=== PATIENT | male | born 1950 | race Caucasian/White ===

== ENCOUNTER → 2016-10-16 | Outpatient (CLI) | payer OTHER, MEDICARE | LOC: MW.CHIM 06:56 | PROVIDERS: ATTEND Internal Medicine | DX: I25.10 Atherosclerotic heart disease of native coronary artery without angina pectoris (principal) | CPT/HCPCS: 93005 ==

== ENCOUNTER → 2016-10-22 | Outpatient (CLI) | payer MEDICARE, OTHER ==
--- NOTE | 2016-10-22 15:34 | US ---
EXAMINATION: JENNIFER HISTORY: Atherosclerotic heart disease COMPARISON: None TECHNIQUE: Pressures obtained in the upper and lower extremities bilaterally. FINDINGS/IMPRESSION: Both the left and right ABIs are normal and greater than 1.
== END ==
LOC: MW.US 13:47
PROVIDERS: ATTEND Internal Medicine
DX: I25.10 Atherosclerotic heart disease of native coronary artery without angina pectoris (principal)
CPT/HCPCS: 93922; 93922-26

== ENCOUNTER 2016-11-05 10:11 | Day surgery (SDC) | payer OTHER, MEDICARE ==
[~2016-11-05 10:11] MED LIST: Lactated Ringers 1,000 ML IV SCH; Lidocaine 2% 5 ML SDV ONE; Propofol 200 MG/20 ML SDV ONE; fentaNYL 100 MCG/2 ML SDV ONE
--- NOTE | 2016-11-05 10:40 | PCM.PREANE ---
Preanesthetic Assessment - Anesthesia/Transfusion/Family Hx Anesthesia History: Prior Anesthesia Without Reaction Family History of Anesthesia Reaction: No Transfusion History: No Prior Transfusion(s) - Review of Systems General: No Symptoms Pulmonary: No Symptoms Cardiovascular: No Symptoms Gastrointestinal: No symptoms Neurological: No Symptoms Other: Reports: None - Physical Assessment NPO Status Date: 11/04/16 Height: 1.75 m Weight: 87.09 kg ASA Class: 3 Mental Status: Alert & Oriented x3 Airway Class: Mallampati = 2 Dentition: Reports: Partial ROM/Head Extension: Full Lungs: Clear to auscultation, Normal respiratory effort Cardiovascular: Regular Rate, Regular Rhythm - Allergies Allergies/Adverse Reactions: Allergies Allergy/AdvReac Type Severity Reaction Status Date / Time No Known Allergies Allergy Verified 10/31/16 10:38 - Blood Blood Available: No - Anesthesia Plan Pre-Op Medication Ordered: None - Acknowledgements Anesthesia Type Planned: MAC Pt an Appropriate Candidate for the Planned Anesthesia: Yes Alternatives and Risks of Anesthesia Discussed w Pt/Guardian: Yes Pt/Guardian Understands and Agrees with Anesthesia Plan: Yes Additional Comments: known CAD, has obstructive dz but unable to place stent, medically managed. Last stress test 09/26/16 with partially reversible inf wall defect. Asymptomatic with usual daily activities, but activities are limited. PreAnesthesia Questionnaire Cardiovascular History: Reports: CAD, High Cholesterol, Hypertension, Other ( See Below) Other 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" Gastrointestinal History: Reports: Colon Polyp Musculoskeletal History: Reports: Back Pain, Chronic Endocrine/Metabolic History: Reports: Hypothyroidism - Past Surgical History Head Surgeries/Procedures: Reports: None GI Surgical History: Reports: Colonoscopy Neurological Surgical History: Reports: Lumbar Spine Other Neurological Surgeries/Procedures: hx back surgery - SUBSTANCE USE Smoking Status *Q: Former Smoker Tobacco Use Within Last Twelve Months: No Recreational Drug Use History: No - HOME MEDS Home Medications: Home Meds Atenolol 0.5 tab PO DAILY 10/31/16 [History] Levothyroxine Sodium [Unithroid] 50 mcg PO DAILY 10/31/16 [History] Meloxicam [Mobic] 15 mg PO DAILY 10/31/16 [History] atorvaSTATin Calcium [Atorvastatin Calcium] 0.5 tab PO BEDTIME 10/31/16 [History ] traMADol HCl [Tramadol HCl] 50 mg PO QID PRN 10/31/16 [History] - CURRENT (IN HOUSE) MEDS Current Meds: Current Medications Lactated Ringer's (Ringers, Lactated) 1,000 mls @ 125 mls/hr IV ASDIRECTED JANETH Discontinued Medications Fentanyl (Sublimaze) Confirm Administered Dose 100 mcg .ROUTE .STK-MED ONE Stop: 11/05/16 09:54 Lidocaine (Xylocaine-Mpf 2%) Confirm Administered Dose 5 ml .ROUTE .STK-MED ONE Stop: 11/05/16 09:54 Propofol (Diprivan 20 Ml) Confirm Administered Dose 400 mg .ROUTE .STK-MED ONE Stop: 11/05/16 09:54
[2016-11-05] MEDS ORDERED: Phenylephrine/Normal Saline 100 MCG/ML 10 ML Syringe ONE (10:46)
[2016-11-05] MEDS ORDERED: ePHEDrine 50 MG/ML SDV ONE (10:50)
[2016-11-05] MEDS ORDERED: Propofol 200 MG/20 ML SDV ONE ×2 (10:56→11:13)
--- NOTE | 2016-11-05 11:49 | PCM.POSTAN ---
POST ANESTHESIA ASSESSMENT - MENTAL STATUS Mental Status: alert, oriented - RESPIRATORY Respiratory Status: respiratory rate WNL, airway patent, O2 saturation stable - CARDIOVASCULAR CV Status: pulse rate WNL, blood pressure stable - GASTROINTESTINAL GI Status: no symptoms - POST OP HYDRATION Hydration Status: adequate & stable - OBSERVATIONS Free Text/Narrative:: no anesthesia problems
--- NOTE | 2016-11-05 12:01 | PCM.OPNOTE ---
- General Post-Op/Procedure Note Date of Surgery/Procedure: 11/05/16 Operative Procedure(s): attempted colonoscopy Findings: see dict [id number] Pre Op Diagnosis: scrn colonoscopy Post-Op Diagnosis: diverticulosis Anesthesia Technique: Moderate sedation Primary Surgeon: Tito Ballard Complications: None Condition: Good
[2016-11-05 13:44] VITALS: BP 122/74
--- NOTE | 2016-11-05 16:09 | CR ---
EXAMINATION: Single contrast barium enema HISTORY: Incomplete colonoscopy. COMPARISON: None TECHNIQUE: Standard single contrast barium enema was performed using diluted barium. FINDINGS: The colon and rectum appear normally distensible. Moderate sigmoid diverticulosis is noted . No definite stricture or filling defect. No reflux into the terminal ileum. The appendix is noted. IMPRESSION: Diverticulosis, otherwise unremarkable single contrast barium enema.
--- NOTE | 2016-11-05 17:52 | OR ---
SURGEON: Tito Ballard MD DATE OF PROCEDURE: 11/05/2016 PREOPERATIVE DIAGNOSIS: Screening colonoscopy. POSTOPERATIVE DIAGNOSIS: Diverticulosis. PROCEDURE PERFORMED: attempted colonoscopy. COMPLICATIONS: None. FINDINGS: 1. The patient is easily sedated with GENERAL CLERK and Diprivan. The patient is soundly snoring. 2. The patient's bowel prep was average with a couple of stool ball and some semi-formed liquid stool. 3. The patient's colonoscopy is attempt all the way to 60 cm and stopped because we cannot continue the colonoscopy. 4. Finding from that 60 cm: The patient has very extensive diverticulosis, false lumen is larger than the true lumen. DESCRIPTION OF PROCEDURE: The patient was taken to the endoscopy room and put in left decubitus position. Left side down and right side up, and the patient was then given Diprivan by GENERAL CLERK and the patient slowly came to sleeping state. Inspection of perineal area, do not see any disease and digital examination is no abnormality and a well lubricated colonoscope was gently inserted through the rectum and negotiated through the rectosigmoid junction and advanced to the descending colon. However, cannot negotiate through the sigmoid and descending colon despite several trial and then colonoscopy abort. From a limited examination, all the way to examination at 60 cm, the patient has very extensive diverticulosis disease. No signs or symptoms of diverticulitis and false lumen is as big as the true lumen. The patient is now for barium enema supplement study. CM / SVEN /[id number] MTDD
== END 2016-11-05 12:26 | disposition home or self-care (01) ==
LOC: MW.SDS 10:11
PROVIDERS: ATTEND Surgery
DX: K57.30 Diverticulosis of large intestine without perforation or abscess without bleeding (principal); I25.10 Atherosclerotic heart disease of native coronary artery without angina pectoris; Z87.891 Personal history of nicotine dependence; E78.5 Hyperlipidemia, unspecified; R73.03 Prediabetes; Z01.810 Encounter for preprocedural cardiovascular examination; Z79.82 Long term (current) use of aspirin; E03.9 Hypothyroidism, unspecified; Z53.8 Procedure and treatment not carried out for other reasons
CPT/HCPCS: 45378; 74270; J3010; 00810; 82962; J2704

== ENCOUNTER 2017-08-13 17:20 | Emergency (ER) | payer OTHER, MEDICARE ==
[2017-08-13] MEDS ORDERED: Ketorolac 30 MG/ML SDV IVPUSH ONE (17:27)
[2017-08-13] MEDS ORDERED: Ondansetron 4 MG/2 ML SDV IVPUSH ONE (17:27)
[2017-08-13] MEDS ORDERED: Sodium Chloride 0.9% 500 ML IV SCH (17:30)
--- NOTE | 2017-08-13 18:06 | EDM.PDOC ---
ED HPI GENERAL MEDICAL PROBLEM - General Chief Complaint: Gastrointestinal Problem Stated Complaint: ABDOMINAL PAIN Time Seen by Provider: 08/13/17 17:28 Source of Information: Reports: Patient, Family History Limitations: Reports: No Limitations - History of Present Illness INITIAL COMMENTS - FREE TEXT/NARRATIVE: HISTORY AND PHYSICAL: History of present illness: Patient is a 66 year old male who presents to the emergency room today with complaints of abdominal pain, nausea, vomiting, and small loose stools. Patient reports that he started having abdominal pain earlier this morning and felt as if he had to have a bowel movement, but was unable to "go". States when he sits on the toilet he is having small liquidy loose stools but has a sensation that he needs to have a "normal" BM. Has had intermittent nausea and vomiting during this time. Denies any chest pain, shortness of breath, fever or chills. Has no history of GI illnesses/diseases/surgeries. Review of systems: As per history of present illness and below otherwise all systems reviewed and negative. Past medical history: As per history of present illness and as reviewed below otherwise noncontributory. Surgical history: As per history of present illness and as reviewed below otherwise noncontributory. Social history: No reported history of drug or alcohol abuse. Family history: As per history of present illness and as reviewed below otherwise noncontributory. Physical exam: General: Well-developed and well-nourished 66-year-old male. Alert and oriented. Nontoxic appearing and in no acute distress. HEENT: Atraumatic, normocephalic, pupils reactive, negative for conjunctival pallor or scleral icterus, mucous membranes moist, throat clear, neck supple, nontender, trachea midline. Lungs: Clear to auscultation, breath sounds equal bilaterally, chest nontender. Heart: S1S2, regular rate and rhythm Abdomen: Soft, distended with diffuse tenderness in all 4 quadrants. Negative for masses or hepatosplenomegaly. Negative for costovertebral tenderness. Pelvis: Stable nontender. Genitourinary: Deferred. Rectal: Deferred. Extremities: Atraumatic, negative for cords or calf pain. Neurovascular unremarkable. Neuro: Awake, alert, oriented. Cranial nerves II through XII unremarkable. Cerebellum unremarkable. Motor and sensory unremarkable throughout. Exam nonfocal. 1830- Patient did have large bowel movement while here (did not catch in specimen container). EKG shows a normal sinus rhythm with heart rate of 86. 1923- VSS. WBC 18. 92, amylase is 118, elevated glucose. Waiting for Abdominal CT to be performed. 2100- patient states that he does feel improved after receiving IV fluids and Zofran. The labs are likely due to viral gastroenteritis. Did talk with patient and signs and symptoms to monitor for over the next 24-48 hours would prompt him to come back to the emergency room patient was unable to give us a stool sample, gave them information materials to collect at home if desired. Both patient and voice understanding and they're agreeable to plan of care. They deny any questions at this time. Diagnostics: CBC, CMP, amylase, lipase, CT abdomen and pelvis, stool studies Therapeutics: IV fluid, Zofran, Toradol Impression: 1. Abdominal Pain 2. Viral gastroenteritis Plan: 1. Pepin diet for the next 24-48 hours. Drink small sips of fluids frequently to prevent dehydration, this may be water or Gatorade's. 2. Tylenol and/or ibuprofen as needed for pain management. 3. Follow up with her primary caregiver in the next 1-2 days. Return to the ED as needed and as we discussed (such as increased abdominal pain, fever, dehydration etc..). Definitive disposition and diagnosis as appropriate pending reevaluation and review of above. Onset: Today Duration: Hour(s): Location: Reports: Abdomen abd Pain Score (Numeric/FACES): 10 - Related Data Allergies Allergy/AdvReac Type Severity Reaction Status Date / Time No Known Allergies Allergy Verified 08/13/17 17:51 Home Meds: Home Meds Atenolol 0.5 tab PO DAILY 10/31/16 [History] Levothyroxine Sodium [Unithroid] 50 mcg PO DAILY 10/31/16 [History] Meloxicam [Mobic] 15 mg PO DAILY 10/31/16 [History] atorvaSTATin Calcium [Atorvastatin Calcium] 0.5 tab PO BEDTIME 10/31/16 [History ] traMADol HCl [Tramadol HCl] 50 mg PO QID PRN 10/31/16 [History] Past Medical History Cardiovascular History: Reports: CAD, High Cholesterol, Hypertension, Other ( See Below) Other 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" Gastrointestinal History: Reports: Colon Polyp Musculoskeletal History: Reports: Back Pain, Chronic Endocrine/Metabolic History: Reports: Hypothyroidism - Past Surgical History Head Surgeries/Procedures: Reports: None GI Surgical History: Reports: Colonoscopy Neurological Surgical History: Reports: Lumbar Spine Other Neurological Surgeries/Procedures: hx back surgery Social & Family History - Tobacco Use Smoking Status *Q: Former Smoker Month Tobacco Last Used: quit smoking 20 yrs ago - Caffeine Use Caffeine Use: Reports: Coffee - Recreational Drug Use Recreational Drug Use: No ED ROS GENERAL - Review of Systems Review Of Systems: ROS reveals no pertinent complaints other than HPI. ED EXAM, GI/ABD - Physical Exam Exam: See Below (See dictation) Course - Vital Signs Last Recorded V/S: Last Vital Signs Temp 98.4 F 08/13/17 20:43 Pulse 95 08/13/17 20:43 Resp 18 08/13/17 20:43 BP 129/60 08/13/17 20:43 Pulse Ox 95 08/13/17 20:43 - Orders/Labs/Meds Orders: Active Orders 24 hr Category Date Time Status EKG Documentation Completion [RC] STAT Care 08/13/17 18:14 Active Abdomen Pelvis wo Cont [CT] Stat Exams 08/13/17 18:02 Taken Sodium Chloride 0.9% [Normal Saline] 500 ml Med 08/13/17 17:30 Active IV STAT Medication Orders Sodium Chloride (Normal Saline) 500 mls @ 999 mls/hr IV STAT JANETH Last Admin: 08/13/17 19:28 Dose: 999 mls/hr Labs: Laboratory Tests 08/13/17 08/13/17 Range/Units 18:25 18:25 WBC 18.92 H (4.0-11.0) K/uL RBC 5.21 (4.50-5.90) M/uL Hgb 16.3 (13.0-17.0) g/dL Hct 48.1 (38.0-50.0) % MCV 92.3 (80.0-98.0) fL MCH 31.3 (27.0-32.0) pg MCHC 33.9 (31.0-37.0) g/dL RDW Std Deviation 46.9 (28.0-62.0) fl RDW Coeff of Valeriy 14 (11.0-15.0) % Plt Count 263 (150-400) K/uL MPV 9.50 (7.40-12.00) fL Neut % (Auto) 92.4 H (48.0-80.0) % Lymph % (Auto) 5.4 L (16.0-40.0) % Love % (Auto) 2.0 (0.0-15.0) % Eos % (Auto) 0.1 (0.0-7.0) % Baso % (Auto) 0.1 (0.0-1.5) % Neut # (Auto) 17.5 H (1.4-5.7) K/uL Lymph # (Auto) 1.0 (0.6-2.4) K/uL Love # (Auto) 0.4 (0.0-0.8) K/uL Eos # (Auto) 0.0 (0.0-0.7) K/uL Baso # (Auto) 0.0 (0.0-0.1) K/uL Nucleated RBC % 0.0 /100WBC Nucleated RBCs # 0 K/uL Sodium 140 (136-146) mmol/L Potassium 4.0 (3.5-5.1) mmol/L Chloride 104 (98-110) mmol/L Carbon Dioxide 21 (21-31) mmol/L BUN 28 H (6.0-23.0) mg/dL Creatinine 1.8 H (0.6-1.5) mg/dL Est Cr Clr Drug Dosing 40.37 mL/min Estimated GFR (MDRD) 37.9 ml/min Glucose 256 H (60-110) mg/dL Calcium 11.6 H (8.8-10.8) mg/dL Total Bilirubin 0.9 (0.1-1.5) mg/dL AST 35 (5-40) IU/L ALT 27 (8-54) IU/L Alkaline Phosphatase 163 H (40-150) Total Protein 7.9 (6.0-8.0) g/dL Albumin 4.3 (3.4-4.8) g/dL Globulin 3.6 H (2.0-3.5) g/dL Albumin/Globulin Ratio 1.2 L (1.3-2.8) Amylase 118 H (10-90) U/L Lipase 44 (7-80) U/L Meds: Medications Generic Name Dose Route Start Last Admin Trade Name Freq PRN Reason Stop Dose Admin Sodium Chloride 500 mls @ 999 mls/hr 08/13/17 17:30 08/13/17 19:28 Normal Saline IV 999 mls/hr STAT JANETH Administration Discontinued Medications Generic Name Dose Route Start Last Admin Trade Name Romy PRN Reason Stop Dose Admin Ketorolac Tromethamine 30 mg 08/13/17 17:27 08/13/17 19:31 Toradol IVPUSH 08/13/17 17:28 30 mg ONETIME ONE Administration Morphine Sulfate 2 mg 08/13/17 18:20 08/13/17 19:32 Morphine IVPUSH 08/13/17 18:21 2 mg ONETIME ONE Administration Ondansetron HCl 4 mg 08/13/17 17:27 08/13/17 19:31 Zofran IVPUSH 08/13/17 17:28 4 mg ONETIME ONE Administration Departure - Departure Time of Disposition: 21:06 Disposition: Home, Self-Care 01 Clinical Impression: Abdominal pain, Gastroenteritis - Discharge Information Referrals: PCP,None [Primary Care Provider] - Forms: ED Department Discharge Additional Instructions: My general discharge The following information is given to patients seen in the emergency department who are being discharged to home. This information is to outline your options for follow-up care. We provide all patients seen in our emergency department with a follow-up referral. The need for follow-up, as well as the timing and circumstances, are variable depending upon the specifics of your emergency department visit. If you don't have a primary care physician on staff, we will provide you with a referral. We always advise you to contact your personal physician following an emergency department visit to inform them of the circumstance of the visit and for follow-up with them and/or the need for any referrals to a consulting specialist. The emergency department will also refer you to a specialist when appropriate. This referral assures that you have the opportunity for follow-up care with a specialist. All of these measure are taken in an effort to provide you with optimal care, which includes your follow-up. Under all circumstances we always encourage you to contact your private physician who remains a resource for coordinating your care. When calling for follow-up care, please make the office aware that this follow-up is from your recent emergency room visit. If for any reason you are refused follow-up, please contact the [facility] Emergency Department at and asked to speak to the emergency department charge nurseTana Scott [facility] [address] [place] [id number] 1. Pepin diet for the next 24-48 hours. Drink small sips of fluids frequently to prevent dehydration, this may be water or Gatorade's. 2. Tylenol and/or ibuprofen as needed for pain management. 3. Follow up with her primary caregiver in the next 1-2 days. Return to the ED as needed and as we discussed (such as increased abdominal pain, fever, dehydration etc..). - My Orders Last 24 Hours: My Active Orders 08/13/17 17:30 Sodium Chloride 0.9% [Normal Saline] 500 ml IV STAT 08/13/17 18:02 Abdomen Pelvis wo Cont [CT] Stat 08/13/17 18:14 EKG Documentation Completion [RC] STAT - Assessment/Plan Last 24 Hours: My Active Orders 08/13/17 17:30 Sodium Chloride 0.9% [Normal Saline] 500 ml IV STAT 08/13/17 18:02 Abdomen Pelvis wo Cont [CT] Stat 08/13/17 18:14 EKG Documentation Completion [RC] STAT
[2017-08-13] MEDS ORDERED: Morphine 2 MG/ML Syringe IVPUSH ONE (18:20)
[2017-08-13 20:44] VITALS: BP 129/60
--- NOTE | 2017-08-14 14:04 | CT ---
EXAM DATE: 08/13/17 PATIENT'S AGE: 66 Patient: ASHLEY JACOBSON Facility: [place], [place] Site . Site : [id number] Study: CT Abdomen/Pelvis [id number]/21/2018 7:58:12 PM Ordering Physician: Doctor Florez Final Report: INDICATION: General abd pain, N/V/D. CT ABDOMEN AND PELVIS WITHOUT CONTRAST TECHNIQUE: Multidetector CT imaging was performed through the abdomen and pelvis without intravenous contrast administration. Coronal and sagittal reconstructions were generated. COMPARISON: None. FINDINGS: Lower chest: Mild centrilobular pulmonary emphysema. Mild bibasilar atelectatic and/or fibrotic changes, right greater than left. Liver: Within normal limits. Gallbladder and bile ducts: No gallbladder wall thickening or calcified gallstones. No biliary dilation identified. Pancreas: Unremarkable. Spleen: Normal. Adrenals: No nodules or masses. Kidneys, ureters, and urinary bladder: No urinary tract stones identified. No renal masses or hydronephrosis. No bladder mass or definite wall thickening. Gastrointestinal tract: Small hiatal hernia. Normal caliber small bowel without wall thickening or obstruction. The appendix is normal. Diffuse colon wall thickening with areas of pericolonic stranding, most marked in the distal transverse colon through the sigmoid colon, consistent with colitis. Vascular structures: Normal caliber abdominal aorta. Moderate aortoiliac atherosclerotic calcifications. Coronary artery calcifications are also present. Peritoneum: No free air, abscess, or significant free fluid. Lymph nodes: No pathologically enlarged nodes identified. Reproductive organs: No pelvic masses. Incidental prostatic calcifications. Bones: Moderate multilevel spondylosis. Mature postoperative changes of lower lumbar laminectomy and fusion. IMPRESSION: 1. Nonspecific colitis of moderate severity. 2. Nonacute additional findings as detailed above. RACHELE QUIROS MD [employer] Dictated by Jaison Quiros MD @ 08/13/2017 8:49:42 PM Dictated by: Jaison Quiros MD @ 08/13/2017 20:52:51 (Electronic Signature) Report Signed by Proxy. [facility]
== END 2017-08-13 21:21 | disposition home or self-care (01) ==
LOC: MW.ED 17:20
DX: A08.4 Viral intestinal infection, unspecified (principal); E78.00 Pure hypercholesterolemia, unspecified; I10 Essential (primary) hypertension; E03.9 Hypothyroidism, unspecified; Z79.899 Other long term (current) drug therapy; Z87.891 Personal history of nicotine dependence
CPT/HCPCS: 74176; 80053; 82150; 83690; 85025; 93005; 96361; 96374; 96375; 99284; J1885; J2270; J2405; J7040

== ENCOUNTER 2017-08-18 09:12 | Emergency (ER) | payer OTHER, MEDICARE ==
[2017-08-18] MEDS ORDERED: Ondansetron 4 MG/2 ML SDV IVPUSH ONE (10:12)
[2017-08-18] MEDS ORDERED: Sodium Chloride 0.9% 500 ML IV SCH ×2 (10:15→13:00)
--- NOTE | 2017-08-18 10:32 | EDM.PDOC ---
ED HPI GENERAL MEDICAL PROBLEM - General Chief Complaint: Abdominal Pain Stated Complaint: DEHYDRATED Time Seen by Provider: 08/18/17 10:11 Source of Information: Reports: Patient History Limitations: Reports: No Limitations - History of Present Illness INITIAL COMMENTS - FREE TEXT/NARRATIVE: HISTORY AND PHYSICAL: History of present illness: Patient is [id number] male who presents to the emergency room today with complaints of nausea, vomiting, diarrhea and left lower quadrant pain 2 weeks. He was seen last week in the emergency room and had labs and CTs done at that time. He is diagnosed with viral gastroenteritis. He states that his symptoms have not improved and they had gone to the walk-in clinic today. They're concerned that he is dehydrated as he has not been able to keep anything down and still has diarrhea. The provider at the walk-in clinic sent him to the emergency room with concerns he has diverticulitis or diverticulosis. Family is requesting an additional CT at this time to have a definitive diagnosis. Denies any fever, chills, chest pain or shortness of breath. Patient is color blind and states he "thinks he's had some red stools" but is unsure. PMH: Review of systems: As per history of present illness and below otherwise all systems reviewed and negative. Past medical history: As per history of present illness and as reviewed below otherwise noncontributory. Surgical history: As per history of present illness and as reviewed below otherwise noncontributory. Social history: No reported history of drug or alcohol abuse. Family history: As per history of present illness and as reviewed below otherwise noncontributory. Physical exam: General: patient is a well-developed and well-nourished 66-year-old male. Alert and oriented. Nontoxic appearing and in no acute distress. HEENT: Atraumatic, normocephalic, pupils reactive bilaterally, negative for conjunctival pallor or scleral icterus, TM normal bilateral, mucous membranes moist, throat clear, neck supple, nontender, trachea midline. Lungs: Clear to auscultation, breath sounds equal bilaterally, chest nontender. No effort of breathing. Heart: S1S2, regular, rate and rhythm without overt murmur Abdomen: Soft, nondistended, left lower quadrant tenderness with palpation. Negative for masses or hepatosplenomegaly. Negative for costovertebral tenderness. Pelvis: Stable nontender. Genitourinary: Deferred. Rectal: Done with a chaperoneat the bedside. No external hemorrhoids noted. Patient is positive for Hemoccult. Tolerated well. Extremities: Atraumatic, moves all extremities per self without difficulty or deciets, negative for cords or calf pain. Neurovascular unremarkable. Neuro: Awake, alert, oriented. Cranial nerves II through XII unremarkable. Cerebellum unremarkable. Motor and sensory unremarkable throughout. Exam nonfocal. 08/13/2017: Patient was seen in the emergency room and had lab work and CT of the abdomen and pelvis. At that time showed nonspecific colitis and did have a white count of 18. This appeared to be viral in nature and supportive care measures were discussed with the patient. EKG showes normal sinus rhythm of 72. VSS. Today's labs show Abnormal chemistries: sodium of 132, potassium 6.7, BUN 135 (was 28 on 08/13/2017), creatinine 14.2 (was 1.8 on 08/13/2017), aST 281, ALTs 318, alkaline phosphatase 1003, amylase 187. + Hemoccult upon rectal exam. Has not given us a stool sample for labs. New labs were entered in for further evaluation. Dr. Oliver, ER physician in [facility], was consulted on this case. He is agreeable to accepting this patient at their facility. Patient aware of transfer. Will go by ground EMS. Diagnostics: CBC, CMP, amylase, lipase, CT abdomen and pelvis w/o contrast, stool studies, Troponin, CKMB, CPK Therapeutics: IV fluid, Zofran, morphine, Calcium gluconate Impression: Acute Kidney Failure Hyperkalemia Plan: Transfer to [place] and not per ground EMS, Dr. Oliver Definitive disposition and diagnosis as appropriate pending reevaluation and review of above. Duration: Week(s): Location: Reports: Abdomen Abdominal Pain Score (Numeric/FACES): 4 - Related Data Allergies Allergy/AdvReac Type Severity Reaction Status Date / Time No Known Allergies Allergy Verified 08/18/17 09:39 Home Meds: Home Meds Atenolol 0.5 tab PO DAILY 10/31/16 [History] Levothyroxine Sodium [Unithroid] 50 mcg PO DAILY 10/31/16 [History] Meloxicam [Mobic] 15 mg PO DAILY 10/31/16 [History] atorvaSTATin Calcium [Atorvastatin Calcium] 0.5 tab PO BEDTIME 10/31/16 [History ] traMADol HCl [Tramadol HCl] 50 mg PO QID PRN 10/31/16 [History] Past Medical History Cardiovascular History: Reports: CAD, High Cholesterol, Hypertension, Other ( See Below) Other 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" Gastrointestinal History: Reports: Colon Polyp Musculoskeletal History: Reports: Back Pain, Chronic Endocrine/Metabolic History: Reports: Hypothyroidism - Past Surgical History Head Surgeries/Procedures: Reports: None GI Surgical History: Reports: Colonoscopy Neurological Surgical History: Reports: Lumbar Spine Other Neurological Surgeries/Procedures: hx back surgery Social & Family History - Family History Family Medical History: Noncontributory - Tobacco Use Smoking Status *Q: Never Smoker Month Tobacco Last Used: quit smoking 20 yrs ago Second Hand Smoke Exposure: No - Caffeine Use Caffeine Use: Reports: Other - Recreational Drug Use Recreational Drug Use: No ED ROS GENERAL - Review of Systems Review Of Systems: ROS reveals no pertinent complaints other than HPI. ED EXAM, GI/ABD - Physical Exam Exam: See Below (see dictation) Course - Vital Signs Last Recorded V/S: Last Vital Signs Temp 97.2 F 08/18/17 09:39 Pulse 96 08/18/17 09:39 Resp 18 08/18/17 09:39 BP 171/78 H 08/18/17 09:39 Pulse Ox 98 08/18/17 09:39 - Orders/Labs/Meds Orders: Active Orders 24 hr Category Date Time Status EKG Documentation Completion [RC] STAT Care 08/18/17 12:51 Active Sodium Chloride 0.9% [Normal Saline] 500 ml Med 08/18/17 10:15 Active IV STAT Sodium Chloride 0.9% [Normal Saline] 500 ml Med 08/18/17 13:00 Active IV STAT Medication Orders Sodium Chloride (Normal Saline) 500 mls @ 999 mls/hr IV STAT JANETH Last Admin: 08/18/17 11:25 Dose: 999 mls/hr Sodium Chloride (Normal Saline) 500 mls @ 150 mls/hr IV STAT JANETH Last Admin: 08/18/17 13:17 Dose: 150 mls/hr Labs: Laboratory Tests 08/18/17 08/18/17 08/18/17 Range/Units 10:46 10:46 10:46 WBC 4.57 (4.0-11.0) K/uL RBC 4.34 L (4.50-5.90) M/uL Hgb 13.4 (13.0-17.0) g/dL Hct 38.6 (38.0-50.0) % MCV 88.9 (80.0-98.0) fL MCH 30.9 (27.0-32.0) pg MCHC 34.7 (31.0-37.0) g/dL RDW Std Deviation 46.9 (28.0-62.0) fl RDW Coeff of Valeriy 14 (11.0-15.0) % Plt Count 188 (150-400) K/uL MPV 9.40 (7.40-12.00) fL Add Manual Diff YES Neutrophils % (Manual) 37 L (48.0-80.0) % Band Neutrophils % 19 % Lymphocytes % (Manual) 26 (16.0-40.0) % Monocytes % (Manual) 16 H (0.0-15.0) % Eosinophils % (Manual) 1 (0.0-7.0) % Metamyelocytes % 1 % Nucleated RBC % 0.0 /100WBC Absolute Seg Neuts 1.7 (1.4-5.7) Band Neutrophils # 0.9 Lymphocytes # (Manual) 1.2 (0.6-2.4) Monocytes # (Manual) 0.7 (0.0-0.8) Eosinophils # (Manual) 0.0 (0.0-0.7) Absolute Metamyelocyte 0 Nucleated RBCs # 0 K/uL Sodium 132 L (136-146) mmol/L Potassium 6.7 H (3.5-5.1) mmol/L Chloride 93 L (98-110) mmol/L Carbon Dioxide 14 L (21-31) mmol/L BUN 135 H (6.0-23.0) mg/dL Creatinine 14.2 H (0.6-1.5) mg/dL Est Cr Clr Drug Dosing TNP Estimated GFR (MDRD) 3.5 ml/min Glucose 82 (60-110) mg/dL Calcium 8.6 L (8.8-10.8) mg/dL Total Bilirubin 4.3 H (0.1-1.5) mg/dL AST 281 H (5-40) IU/L ALT 318 H (8-54) IU/L Alkaline Phosphatase 1003 H (40-150) Creatine Kinase 96 (9-236) IU/L CK-MB (CK-2) 1.8 (0-6.6) ng/ml Troponin I < 0.10 (0.0-0.29) NG/ML Total Protein 6.6 (6.0-8.0) g/dL Albumin 3.2 L (3.4-4.8) g/dL Globulin 3.4 (2.0-3.5) g/dL Albumin/Globulin Ratio 0.9 L (1.3-2.8) Amylase 187 H (10-90) U/L Lipase 69 (7-80) U/L Meds: Medications Generic Name Dose Route Start Last Admin Trade Name Freq PRN Reason Stop Dose Admin Sodium Chloride 500 mls @ 999 mls/hr 08/18/17 10:15 08/18/17 11:25 Normal Saline IV 999 mls/hr STAT JANETH Administration Sodium Chloride 500 mls @ 150 mls/hr 08/18/17 13:00 08/18/17 13:17 Normal Saline IV 150 mls/hr STAT JANETH Administration Discontinued Medications Generic Name Dose Route Start Last Admin Trade Name Freq PRN Reason Stop Dose Admin Calcium Gluconate 1 gm 08/18/17 12:51 08/18/17 13:17 Calcium Gluconate IVPUSH 08/18/17 12:52 1 gm ONETIME ONE Administration Morphine Sulfate 2 mg 08/18/17 12:50 08/18/17 13:17 Morphine IVPUSH 08/18/17 12:51 2 mg ONETIME ONE Administration Ondansetron HCl 4 mg 08/18/17 10:12 08/18/17 11:25 Zofran IVPUSH 08/18/17 10:13 4 mg ONETIME ONE Administration Departure - Departure Time of Disposition: 13:49 Disposition: DC/Tfer to Other 70 Clinical Impression: Hyperkalemia Acute kidney failure Qualifiers: Acute renal failure type: unspecified Qualified Code(s): N17.9 - Acute kidney failure, unspecified - Discharge Information Referrals: Lali Fay [Primary Care Provider] - Forms: ED Department Discharge - My Orders Last 24 Hours: My Active Orders 08/18/17 10:15 Sodium Chloride 0.9% [Normal Saline] 500 ml IV STAT 08/18/17 12:51 EKG Documentation Completion [RC] STAT 08/18/17 13:00 Sodium Chloride 0.9% [Normal Saline] 500 ml IV STAT - Assessment/Plan Last 24 Hours: My Active Orders 08/18/17 10:15 Sodium Chloride 0.9% [Normal Saline] 500 ml IV STAT 08/18/17 12:51 EKG Documentation Completion [RC] STAT 08/18/17 13:00 Sodium Chloride 0.9% [Normal Saline] 500 ml IV STAT
[2017-08-18 11:26] LABS: CHLORIDE,CL 93 mmol/L (98-110); SODIUM,NA 132 mmol/L (136-146)
--- NOTE | 2017-08-18 12:01 | CT ---
CT of the abdomen and pelvis without contrast. HISTORY: Left lower quadrant pain COMPARISON: 08/13/2017. TECHNIQUE: Axial CT images were obtained of the abdomen and pelvis without contrast. Coronal and sagi ttal reconstructions obtained. FINDINGS: The lung bases are clear, no pleural effusion. The liver, spleen, adrenal glands, and pancreas appear unremarkable for noncontrast examination. The gallbladder appears normal. There is no bulky retroperitoneal lymphadenopathy. No abdominal ascites. There are no calcifications noted within the kidneys or along the courses of the ureters bilaterally. The large and small bowel are normal in caliber without evidence of obstruction. There is mild adjace nt stranding in the long segment of the colon along the splenic flexure and descending colon. Diverti culosis is noted within the sigmoid region. The appendix appears normal. There is no bulky pelvic lym phadenopathy. No free fluid. No free air. The urinary bladder appears normal. Prostatic calcification s noted. Degenerative postoperative changes noted within the lumbar spine. IMPRESSION: 1. Long segment mild pericolonic stranding within the left hemicolon likely representing an underlyin g colitis. Less overall stranding is noted from the prior examination. 2. Mild diverticulosis without evidence of diverticulitis.
[2017-08-18] MEDS ORDERED: Morphine 2 MG/ML Syringe IVPUSH ONE (12:50)
[2017-08-18] MEDS ORDERED: Calcium Gluconate 10% 1 GM/10 ML SDV IVPUSH ONE (12:51)
[2017-08-18 15:28] VITALS: BP 164/63
== END 2017-08-18 13:53 | disposition other institution (70) ==
LOC: MW.ED 09:12
DX: N17.9 Acute kidney failure, unspecified (principal); E87.5 Hyperkalemia; I10 Essential (primary) hypertension; I25.10 Atherosclerotic heart disease of native coronary artery without angina pectoris; E78.00 Pure hypercholesterolemia, unspecified; E03.9 Hypothyroidism, unspecified; Z87.891 Personal history of nicotine dependence; Z79.899 Other long term (current) drug therapy
CPT/HCPCS: 36415; 74176; 80053; 82150; 82550; 82553; 83690; 84484; 85025; 93005; 96361; 96374; 96375; 99285; J0610; J2270; J2405; J7040; 99284

== ENCOUNTER 2017-11-27 08:56 | Day surgery (SDC) | payer OTHER, MEDICARE ==
[~2017-11-27 08:56] MED LIST changes: +Dexamethasone 4 MG/ML 5 ML MDV ONE; -Lactated Ringers 1,000 ML IV SCH; -Lidocaine 2% 5 ML SDV ONE; +Midazolam 1 MG/ML 2 ML SDV ONE; +Ondansetron 4 MG/2 ML SDV ONE; +Sodium Chloride 0.9% 1,000 ML IV SCH; +Sodium Chloride 0.9% 10 ML Syringe FLUSH PRN; +Sodium Chloride 0.9% 2.5 ML Syringe FLUSH PRN; +ceFAZolin 2 GM in Premix Bag 1 BAG IV ONE
--- NOTE | 2017-11-27 09:34 | PCM.PREANE ---
Preanesthetic Assessment - Anesthesia/Transfusion/Family Hx Anesthesia History: Prior Anesthesia Without Reaction Family History of Anesthesia Reaction: No Transfusion History: Prior Transfusion Without Reaction - Review of Systems General: No Symptoms Pulmonary: No Symptoms Cardiovascular: No Symptoms Gastrointestinal: No Symptoms Neurological: No Symptoms Other: Reports: None - Physical Assessment NPO Status Date: 11/26/17 Height: 1.75 m Weight: 77.111 kg ASA Class: 3 Mental Status: Alert & Oriented x3 Airway Class: Mallampati = 1 Dentition: Reports: Missing Tooth/Teeth ROM/Head Extension: Full Lungs: Clear to Auscultation, Normal Respiratory Effort Cardiovascular: Regular Rate, Regular Rhythm - Allergies Allergies/Adverse Reactions: Allergies Allergy/AdvReac Type Severity Reaction Status Date / Time contrast dye Allergy kidney Uncoded 11/25/17 09:24 failure - Acknowledgements Anesthesia Type Planned: MAC Pt an Appropriate Candidate for the Planned Anesthesia: Yes Alternatives and Risks of Anesthesia Discussed w Pt/Guardian: Yes Pt/Guardian Understands and Agrees with Anesthesia Plan: Yes Additional Comments: PMH: remote hx of cad (20 yr ago) with obstruction of single CAD with good collaterilization, no cardiac sx, CKD4, htn, thyroid replacement. PreAnesthesia Questionnaire HEENT History: Reports: Other (See Below) Other HEENT History: wears glasses, "partial denture got lost" Cardiovascular History: Reports: CAD, High Cholesterol, Hypertension, Other ( See Below) Other Cardiovascular History: has hx "blocked artery" Gastrointestinal History: Reports: Colon Polyp Genitourinary History: Reports: Acute Renal Failure Other Genitourinary History: developed acute renal failure after receiving IV contrast and was on dialysis. Renal function now improved and does not need further dialysis. Musculoskeletal History: Reports: Back Pain, Chronic, Osteoarthritis Neurological History: Reports: None Endocrine/Metabolic History: Reports: Hypothyroidism Hematologic History: Reports: Blood Transfusion(s) Dermatologic History: Reports: Eczema - Past Surgical History Head Surgeries/Procedures: Reports: None GI Surgical History: Reports: Colonoscopy Male Surgical History: Reports: Vasectomy Other Male Surgeries/Procedures: hx of insertion of dialysis catheter Neurological Surgical History: Reports: Lumbar Spine Other Neurological Surgeries/Procedures: hx back surgery & later removal of hardware to back Musculoskeletal Surgical History: Reports: Shoulder Surgery Other Musculoskeletal Surgeries/Procedures:: hx rotator cuff repair-Rt - SUBSTANCE USE Smoking Status *Q: Former Smoker Tobacco Use Within Last Twelve Months: No Recreational Drug Use History: No - HOME MEDS Home Medications: Home Meds Atenolol 0.5 tab PO DAILY 10/31/16 [History] Levothyroxine Sodium [Unithroid] 50 mcg PO DAILY 10/31/16 [History] atorvaSTATin Calcium [Atorvastatin Calcium] 0.5 tab PO BEDTIME 10/31/16 [History ] traMADol HCl [Tramadol HCl] 50 mg PO QID PRN 10/31/16 [History] Aspirin [[place] Aspirin] 81 mg PO DAILY 11/25/17 [History] - CURRENT (IN HOUSE) MEDS Current Meds: Current Medications Sodium Chloride (Normal Saline) 1,000 mls @ 75 mls/hr IV ASDIRECTED JANETH Sodium Chloride (Saline Flush) 10 ml FLUSH ASDIRECTED PRN PRN Reason: Keep Vein Open Sodium Chloride (Saline Flush) 2.5 ml FLUSH ASDIRECTED PRN PRN Reason: Keep Vein Open Discontinued Medications Dexamethasone (Dexamethasone) Confirm Administered Dose 20 mg .ROUTE .STK-MED ONE Stop: 11/27/17 07:05 Fentanyl (Sublimaze) Confirm Administered Dose 100 mcg .ROUTE .STK-MED ONE Stop: 11/27/17 06:55 Cefazolin Sodium/Dextrose 2 gm (/ Premix) 50 mls @ 100 mls/hr IV ONETIME ONE Stop: 11/26/17 14:01 Lidocaine HCl (Xylocaine-Mpf 1%) Confirm Administered Dose 5 mls @ as directed .ROUTE .STK-MED ONE Stop: 11/27/17 07:05 Midazolam HCl (Versed 1 Mg/Ml) Confirm Administered Dose 2 mg .ROUTE .STK-MED ONE Stop: 11/27/17 06:55 Ondansetron HCl (Zofran) Confirm Administered Dose 4 mg .ROUTE .STK-MED ONE Stop: 11/27/17 07:05 Propofol (Diprivan 20 Ml) Confirm Administered Dose 200 mg .ROUTE .STK-MED ONE Stop: 11/27/17 06:55
[2017-11-27] MEDS ORDERED: Bupivacaine 0.5% 30 ML SDV ONE (09:45)
[2017-11-27] MEDS ORDERED: Lidocaine 1% 20 ML MDV ONE (09:46)
[2017-11-27] MEDS ORDERED: ceFAZolin/Dextrose,Iso-Osmotic 2 GM/50 ML Duplex Bag IV ONE (09:47)
[2017-11-27] MEDS ORDERED: ePHEDrine 50 MG/ML SDV ONE (10:22)
--- NOTE | 2017-11-27 10:37 | PCM.POSTAN ---
POST ANESTHESIA ASSESSMENT - MENTAL STATUS Mental Status: Alert, Oriented - RESPIRATORY Respiratory Status: Respiratory Rate WNL, Airway Patent, O2 Saturation Stable - CARDIOVASCULAR CV Status: Pulse Rate WNL, Blood Pressure Stable - GASTROINTESTINAL GI Status: No Symptoms - POST OP HYDRATION Hydration Status: Adequate & Stable
--- NOTE | 2017-11-27 10:45 | PCM.OPNOTE ---
- General Post-Op/Procedure Note Date of Surgery/Procedure: 11/27/17 Operative Procedure(s): Removal dialysis catheter Findings: Intact Right IJ dialysis catheter Pre Op Diagnosis: renal failure Post-Op Diagnosis: same Anesthesia Technique: MAC Primary Surgeon: Fifi Guerrero Condition: Good
--- NOTE | 2017-11-27 11:29 | PCM48HPAN ---
Post Anesthesia Note - EVALUATION WITHIN 48HRS OF ANESTHETIC Vital Signs in Normal Range: Yes Patient Participated in Evaluation: Yes Respiratory Function Stable: Yes Airway Patent: Yes Cardiovascular Function Stable: Yes Hydration Status Stable: Yes Pain Control Satisfactory: Yes Nausea and Vomiting Control Satisfactory: Yes Mental Status Recovered: Yes Resp Rate: 12 - COMMENTS/OBSERVATIONS Free Text/Narrative:: no anesthesia problems
[2017-11-27 12:06] VITALS: BP 126/64
--- NOTE | 2017-11-27 16:36 | OR ---
SURGEON: JEOVANY FLORES MD DATE OF PROCEDURE: 11/27/2017 PREOPERATIVE DIAGNOSIS: Renal failure. POSTOPERATIVE DIAGNOSIS: Renal failure. PROCEDURE PERFORMED: Removal of right internal jugular dialysis catheter. ANESTHESIA: MAC, local. FLUIDS: See anesthesia record. ESTIMATED BLOOD LOSS: 5 mL. FINDINGS: Intact right internal jugular dialysis catheter. COMPLICATIONS: None. INDICATIONS: The patient is a 67-year-old male, who recently underwent acute renal failure after receiving contrast dye. He had a temporary dialysis catheter placed in his right internal jugular vein. His renal function has now improved and he no longer needs dialysis. He came to see me in clinic for removal of this catheter. I explained the procedure, expected perioperative course, and risks including bleeding, infection, or damage to surrounding structures. The patient verbalized understanding and wishes to proceed. PROCEDURE IN DETAIL: The patient was brought into the OR and placed on the OR table in supine position. A time-out was completed verifying the patient's name, age, date of , allergies, and procedure to be performed. Monitored anesthesia care was induced. The right chest and neck were prepped and draped in usual standard fashion. I first anesthetized the area overlying the catheter with 0.5% Marcaine plain. A Metzenbaum scissor was used to make a 1 cm incision from the exit site of the catheter on the skin up over the cuff of the catheter itself. I then used hemostats and Metzenbaum scissors to dissect off the scar tissue surrounding the cuff of the dialysis catheter. These adhesions were flimsy and very easy to takedown. Gentle pressure was then applied to the catheter and it was removed from the right internal jugular vein. Pressure was held at the insertion site on the neck for 5 minutes. The wound was then inspected and found to be hemostatic. A sandbag was placed over the patient's neck and kept in place for another 10 minutes. The hemostasis was achieved at the wound site with cautery. The 1 cm incision was closed with interrupted 4-0 Ethilon sutures. The exit site of the catheter itself was then packed with quarter-inch iodoform gauze and covered with a sterile dressing. The patient tolerated the procedure well and was taken to PACU in stable condition. RODRIGUEZ MACHUCA /[id number]
== END 2017-11-27 11:45 | disposition home or self-care (01) ==
LOC: MW.SDS 08:56
PROVIDERS: ATTEND Surgery
DX: Z45.2 Encounter for adjustment and management of vascular access device (principal); N18.9 Chronic kidney disease, unspecified; I25.10 Atherosclerotic heart disease of native coronary artery without angina pectoris; E78.5 Hyperlipidemia, unspecified; R73.03 Prediabetes; Z79.82 Long term (current) use of aspirin; Z79.899 Other long term (current) drug therapy; Z87.891 Personal history of nicotine dependence
CPT/HCPCS: 36590; J0690; J1100; J2250; J2405; J3010; J7040; J2704

== ENCOUNTER 2019-12-13 11:18 | Emergency (ER) | payer OTHER, MEDICARE ==
[2019-12-13] MEDS ORDERED: Sodium Chloride 0.9% 1,000 ML IV ONE (11:39)
--- NOTE | 2019-12-13 11:41 | EDM.PDOC ---
ED HPI GENERAL MEDICAL PROBLEM - General Chief Complaint: General Stated Complaint: DIZZYNESS/SPINS Time Seen by Provider: 12/13/19 11:31 Source of Information: Reports: Patient History Limitations: Reports: No Limitations - History of Present Illness INITIAL COMMENTS - FREE TEXT/NARRATIVE: HISTORY AND PHYSICAL: History of present illness: Patient is a 69-year-old male who presents to the emergency room with complaints of dizziness. He reports he had a similar episode approximately a month ago and was seen at the [place]. At that time he concurrently had a "cold" and was given some meclizine to help with his dizziness symptoms. Not have any lab work or imaging done at that time. He states it took approximately 1 week but he feels that the dizziness resolved on its own. He had taken the meclizine but did not feel much improvement with that. He has had some intermittent episodes of dizziness since that time but over the past 5 days it has been constant. When this episode started he states he was trying to change positions without moving his head and he heard a large "crunching sound" to his cervical spine. He denies any numbness, tingling, saddle paresthesias. He denies any weakness, slurred speech deficits. He has been trying to take the meclizine but feels like it is not improving. Anytime he has to turn over on his side, move his head side to side or changes positions quickly he has severe dizziness that does elicit some nausea. Patient denies any fever, chills, headache, syncope or near syncope. Denies any chest pain, back pain, shortness of breath or cough. Denies any abdominal pain, nausea, vomiting, diarrhea, constipation or dysuria. Has not noted any blood in urine or stool. Patient has been eating and drinking appropriately. Review of systems: As per history of present illness and below otherwise all systems reviewed and negative. Past medical history: As per history of present illness and as reviewed below otherwise noncontrib utory. Surgical history: As per history of present illness and as reviewed below otherwise noncontributory. Social history: See social history for further information Family history: As per history of present illness and as reviewed below otherwise noncontributory. Physical exam: General: Well-developed and well-nourished 69-year-old male. Alert and oriented. Nontoxic-appearing and in no acute distress. HEENT: Atraumatic, normocephalic, pupils equal and reactive bilaterally, negative for conjunctival pallor or scleral icterus, +nystagmus, mucous membranes moist, TMs normal bilaterally, throat clear, neck supple, nontender, trachea midline. No drooling or trismus noted. No meningeal signs. No hot potato voice noted. Lungs: Clear to auscultation, breath sounds equal bilaterally, chest nontender. Heart: S1S2, regular rate and rhythm without overt murmur Abdomen: Soft, nondistended, nontender. Negative for masses or hepatosplenomegaly. Negative for costovertebral tenderness. Pelvis: Stable nontender. Skin: Intact, warm, dry. No lesions or rashes noted. C-spine/Back: No pinpoint vertebral tenderness upon palpation. No crepitus, step-offs or obvious deformities. Patient is ambulatory into the emergency room without difficulty or deficit. Able to rock back on heels and walk on toes. Denies any urinary or fecal incontinence. Denies any numbness, tingling or saddle paresthesia. No concerns of serious infection, fracture or cord compression, or cauda equina syndrome. Deep tendon reflexes brisk bilaterally. Extremities: Atraumatic, moves all extremities per self without difficulty or deficits, negative for cords or calf pain. Neurovascular unremarkable. Neuro: Awake, alert, oriented. Cranial nerves II through XII unremarkable. Cerebellum unremarkable. Motor and sensory unremarkable throughout. Exam nonfocal. Notes: EKG done at 1123 shows a sinus rhythm with rate of 58. This was compared with an EKG that was done on 08/18/2017, no changes. My physical exam anytime I had to turn his head side to side he did become very dizzy, nystagmus is noted. Patient's lab work, chest x-ray and head/c-spine CT are unremarkable. Vital signs remained stable. I did do 1 dose of Valium while he is here to see if it assists with his vertigo symptoms. I will refer him to physical therapy for the vertigo program so [facility] I did offer to make this appointment for him but he states he will call later this afternoon. Acacian, follow-up and supportive care measures were reviewed and discussed. Voices understanding and is agreeable to plan of care. Denies any further questions or concerns at this time. Diagnostics: CBC, CMP, UA, chest x-ray, head CT Therapeutics: NS, Valium Prescription: Physical Therapy (Vertigo Program) Valium (#15) Impression: Vertigo Plan: 1. Your lab work, head CT and EKG were within normal limits. I would like you to call and set up an appointment with physical therapy as there is a vertigo program which I believe will be very beneficial for your symptoms and help these resolve. 2. You can continue taking the meclizine that you have at home as directed. I have prescribed Valium which can also be used when you are feeling dizzy. This medication does have a side effect of causing drowsiness so do not take it while driving or needing to be functioning outside of the house. 3. Please follow-up with your primary care provider for reevaluation. At any time you feel free to return to the emergency room if your symptoms should return, worsen or new symptoms develop. Definitive disposition and diagnosis as appropriate pending reevaluation and review of above. - Related Data Allergies Allergy/AdvReac Type Severity Reaction Status Date / Time contrast dye Allergy kidney Uncoded 12/13/19 11:25 failure Home Meds: Home Meds Levothyroxine Sodium [Unithroid] 50 mcg PO DAILY 10/31/16 [History] atenoloL [Atenolol] 0.5 tab PO DAILY 10/31/16 [History] atorvaSTATin Calcium [Atorvastatin Calcium] 0.5 tab PO BEDTIME 10/31/16 [History] traMADol HCl [Tramadol HCl] 50 mg PO QID PRN 10/31/16 [History] Aspirin [Juarez Aspirin EC] 81 mg PO DAILY 11/25/17 [History] diazePAM [Valium] 2 mg PO BID PRN #15 tablet 12/13/19 [Rx] Past Medical History HEENT History: Reports: Other (See Below) Other HEENT History: wears glasses, "partial denture got lost" Cardiovascular History: Reports: CAD, High Cholesterol, Hypertension, Other (See Below) Other Cardiovascular History: has hx "blocked artery" Gastrointestinal History: Reports: Colon Polyp Genitourinary History: Reports: Acute Renal Failure Other Genitourinary History: developed acute renal failure after receiving IV contrast and was on dialysis. Renal function now improved and does not need further dialysis. Musculoskeletal History: Reports: Back Pain, Chronic, Osteoarthritis Neurological History: Reports: None Endocrine/Metabolic History: Reports: Hypothyroidism Hematologic History: Reports: Blood Transfusion(s) Dermatologic History: Reports: Eczema - Infectious Disease History Infectious Disease History: Reports: None - Past Surgical History Head Surgeries/Procedures: Reports: None GI Surgical History: Reports: Colonoscopy Male Surgical History: Reports: Vasectomy Other Male Surgeries/Procedures: hx of insertion of dialysis catheter Neurological Surgical History: Reports: Lumbar Spine Other Neurological Surgeries/Procedures: hx back surgery & later removal of hardware to back Musculoskeletal Surgical History: Reports: Shoulder Surgery Other Musculoskeletal Surgeries/Procedures:: hx rotator cuff repair-Rt Social & Family History - Family History Family Medical History: Noncontributory - Tobacco Use Smoking Status *Q: Former Smoker Used Tobacco, but Quit: Yes Month/Year Tobacco Last Used: 1999 - Caffeine Use Caffeine Use: Reports: Coffee - Recreational Drug Use Recreational Drug Use: Yes Recreational Drug Type: Reports: Marijuana/Hashish Recreational Drug Use Frequency: Daily ED ROS GENERAL - Review of Systems Review Of Systems: Comprehensive ROS is negative, except as noted in HPI. ED EXAM, GENERAL - Physical Exam Exam: See Below (See dictation) Course - Vital Signs Last Recorded V/S: Last Vital Signs Temp 96.0 F L 12/13/19 11:29 Pulse 62 12/13/19 11:29 Resp 17 12/13/19 11:29 BP 142/64 H 12/13/19 11:29 Pulse Ox 97 12/13/19 11:29 - Orders/Labs/Meds Orders: Active Orders 24 hr Category Date Time Status EKG Documentation Completion [RC] STAT Care 12/13/19 11:38 Active Sodium Chloride 0.9% [Normal Saline] 1,000 ml Med 12/13/19 11:39 Active IV STAT Medication Orders Sodium Chloride (Normal Saline) 1,000 mls @ 150 mls/hr IV STAT ONE Stop: 12/13/19 18:18 Last Admin: 12/13/19 11:53 Dose: 150 mls/hr Documented by: FLORIDALMA Labs: Laboratory Tests 12/13/19 12/13/19 Range/Units 11:57 11:57 WBC 8.17 (4.0-11.0) K/uL RBC 4.24 L (4.50-5.90) M/uL Hgb 12.7 L (13.0-17.0) g/dL Hct 39.4 (38.0-50.0) % MCV 92.9 (80.0-98.0) fL MCH 30.0 (27.0-32.0) pg MCHC 32.2 (31.0-37.0) g/dL RDW Std Deviation 49.9 (28.0-62.0) fl RDW Coeff of Valeriy 15 (11.0-15.0) % Plt Count 188 (150-400) K/uL MPV 9.30 (7.40-12.00) fL Neut % (Auto) 78.9 (48.0-80.0) % Lymph % (Auto) 12.2 L (16.0-40.0) % Robertson % (Auto) 6.4 (0.0-15.0) % Eos % (Auto) 2.1 (0.0-7.0) % Baso % (Auto) 0.4 (0.0-1.5) % Neut # (Auto) 6.5 H (1.4-5.7) K/uL Lymph # (Auto) 1.0 (0.6-2.4) K/uL Robertson # (Auto) 0.5 (0.0-0.8) K/uL Eos # (Auto) 0.2 (0.0-0.7) K/uL Baso # (Auto) 0.0 (0.0-0.1) K/uL Nucleated RBC % 0.0 /100WBC Nucleated RBCs # 0 K/uL Sodium 138 (136-148) mmol/L Potassium 4.4 (3.5-5.1) mmol/L Chloride 103 (98-107) mmol/L Carbon Dioxide 28.6 (21.0-32.0) mmol/L BUN 30 H (7.0-18.0) mg/dL Creatinine 1.9 H (0.8-1.3) mg/dL Est Cr Clr Drug Dosing 36.69 mL/min Estimated GFR (MDRD) 35.3 ml/min Glucose 116 H (74-106) mg/dL Calcium 8.6 (8.5-10.1) mg/dL Total Bilirubin 0.3 (0.2-1.0) mg/dL AST 21 (15-37) IU/L ALT 19 (14-63) IU/L Alkaline Phosphatase 133 H (46-116) U/L Troponin I <0.050 (0.000-0.056) ng/mL Total Protein 7.4 (6.4-8.2) g/dL Albumin 3.6 (3.4-5.0) g/dL Globulin 3.8 (2.6-4.0) g/dL Albumin/Globulin Ratio 0.9 (0.9-1.6) Meds: Medications Generic Name Dose Route Start Last Admin Trade Name Freq PRN Reason Stop Dose Admin Sodium Chloride 1,000 mls @ 150 mls/hr 12/13/19 11:39 12/13/19 11:53 Normal Saline IV 12/13/19 18:18 150 mls/hr STAT ONE Administration Discontinued Medications Generic Name Dose Route Start Last Admin Trade Name Freq PRN Reason Stop Dose Admin Diazepam 2 mg 12/13/19 13:14 12/13/19 13:34 Valium IVPUSH 12/13/19 13:15 2 mg ONETIME ONE Administration Departure - Departure Time of Disposition: 13:28 Disposition: Home, Self-Care 01 Clinical Impression: Vertigo - Discharge Information Prescriptions: diazePAM [Valium] 2 mg PO BID PRN #15 tablet PRN Reason: Veritgo Instructions: Dizziness, [id number] [facility]: [facility] [Primary Care Provider] - Forms: ED Department Discharge Additional Instructions: The following information is given to patients seen in the emergency department who are being discharged to home. This information is to outline your options for follow-up care. We provide all patients seen in our emergency department with a follow-up referral. The need for follow-up, as well as the timing and circumstances, are variable depending upon the specifics of your emergency department visit. If you don't have a primary care physician on staff, we will provide you with a referral. We always advise you to contact your personal physician following an emergency department visit to inform them of the circumstance of the visit and for follow-up with them and/or the need for any referrals to a consulting specialist. The emergency department will also refer you to a specialist when appropriate. This referral assures that you have the opportunity for follow-up care with a specialist. All of these measure are taken in an effort to provide you with optimal care, which includes your follow-up. Under all circumstances we always encourage you to contact your private physician who remains a resource for coordinating your care. When calling for follow-up care, please make the office aware that this follow-up is from your recent emergency room visit. If for any reason you are refused follow-up, please contact the [facility] at and asked to speak to the emergency department charge nurse. [facility] [address] [place] [id number] [facility] [address] [place] [id number] 1. Your lab work, head CT and EKG were within normal limits. I would like you to call and set up an appointment with physical therapy as there is a vertigo program which I believe will be very beneficial for your symptoms and help these resolve. 2. You can continue taking the meclizine that you have at home as directed. I have prescribed Valium which can also be used when you are feeling dizzy. This medication does have a side effect of causing drowsiness so do not take it while driving or needing to be functioning outside of the house. 3. Please follow-up with your primary care provider for reevaluation. At any time you feel free to return to the emergency room if your symptoms should return, worsen or new symptoms develop. Sepsis Event Note (ED) - Evaluation Sepsis Screening Result: No Definite Risk - Focused Exam Vital Signs: Vital Signs Temp Pulse Resp BP Pulse Ox 12/13/19 11:29 96.0 F L 62 17 142/64 H 97 - My Orders Last 24 Hours: My Active Orders 12/13/19 11:38 EKG Documentation Completion [RC] STAT 12/13/19 11:39 Sodium Chloride 0.9% [Normal Saline] 1,000 ml IV STAT - Assessment/Plan Last 24 Hours: My Active Orders 12/13/19 11:38 EKG Documentation Completion [RC] STAT 12/13/19 11:39 Sodium Chloride 0.9% [Normal Saline] 1,000 ml IV STAT
--- NOTE | 2019-12-13 12:21 | CR ---
Chest: Portable view of the chest was obtained. Comparison: Prior chest x-ray of 04/28/08. Heart size and mediastinum are normal. Lungs are clear with no acute parenchymal change. Bony structures are grossly intact. Impression: 1. Nothing acute is identified on portable chest x-ray. Diagnostic code #1 This report was dictated in MDT
--- NOTE | 2019-12-13 12:27 | CT ---
CT cervical spine Technique: Multiple axial sections were obtained from above C1 inferiorly to the bottom of T2. Reconstructed sagittal and coronal images were reviewed. Comparison: No prior cervical spine imaging. Findings: Mild disc space narrowing is noted at C3-4. Moderate to severe disc space narrowing at C4-5. Moderate disc space narrowing at C5-6. Minimal posterior osteophytes are noted at C3-4 through C5-6. Mild anterior osteophytes are noted at C3-4 through C6-7. Vertebral body heights are maintained. Degenerative change is noted between the dens and anterior arch of C1. Scattered degenerative change is noted throughout the cervical spine which is worse on the left side. No bony central canal stenosis is seen. Mild left-sided neural foraminal stenosis is noted at C4-5. Mild left-sided neural foraminal stenosis is noted at C3-4. Other neural foramina are patent. No fracture is appreciated. No abnormal subluxation is appreciated. Scattered degenerative osteophytes noted within the uncovertebral joints at C3-4, C4-5 and C5-6. Impression: 1. Diffuse degenerative change as noted above. 2. No acute fracture or abnormal subluxation is seen. Diagnostic code #2 This report was dictated in MDT
--- NOTE | 2019-12-13 12:35 | CT ---
Head CT Technique: Multiple axial sections through the brain were obtained. Intravenous contrast was not utilized. Comparison: No prior intracranial imaging is available. Findings: Ventricles along with basal cisterns and sulci over the convexities are within normal limits for the patient's age. No abnormal parenchymal densities are seen. No evidence of intracranial hemorrhage. No midline shift or mass-effect is seen. Visualized mastoid sinuses and visualized paranasal sinuses show nothing acute. No acute calvarial abnormality is appreciated. Impression: 1. Nothing acute is appreciated on noncontrast head CT exam. Diagnostic code #1 This report was dictated in MDT
[2019-12-13 12:41] LABS: BLOOD UREA NITROGEN,BUN 30 mg/dL (7.0-18.0); CARBON DIOXIDE,CO2 28.6 mmol/L (21.0-32.0); CHLORIDE,CL 103 mmol/L (98-107); GLUCOSE RANDOM 116 mg/dL (74-106); POTASSIUM,K 4.4 mmol/L (3.5-5.1); SODIUM,NA 138 mmol/L (136-148)
[2019-12-13 17:21] VITALS: BP 132/68; PULSE 56
== END 2019-12-13 14:19 | disposition home or self-care (01) ==
LOC: MW.ED 11:18
DX: R42 Dizziness and giddiness (principal); E78.00 Pure hypercholesterolemia, unspecified; I10 Essential (primary) hypertension; E03.9 Hypothyroidism, unspecified; Z79.899 Other long term (current) drug therapy; Z87.891 Personal history of nicotine dependence; I25.10 Atherosclerotic heart disease of native coronary artery without angina pectoris; Z91.041 Radiographic dye allergy status; M19.90 Unspecified osteoarthritis, unspecified site; Z79.82 Long term (current) use of aspirin
CPT/HCPCS: 36415; 70450; 71045; 72125; 80053; 84484; 85025; 93005; 96361; 96374; 99284; J3360; J7030

== ENCOUNTER 2024-06-11 07:53 | Day surgery (SDC) | payer MEDICARE, OTHER ==
[2024-06-11] MEDS: Lactated Ringers 1,000 ML IV SCH (08:27)
[2024-06-11] MEDS ORDERED: propofoL 500 MG/50 ML 50 ML ONE (08:40)
[2024-06-11] MEDS ORDERED: Lactated Ringers 1,000 ML IV SCH (10:30)
[2024-06-11 10:58] VITALS: BP 132/74; PULSE 64
== END 2024-06-11 11:00 | disposition home or self-care (01) ==
LOC: MW.SDS 07:53
PROVIDERS: ATTEND Surgery
DX: Z12.11 Encounter for screening for malignant neoplasm of colon (principal); D12.5 Benign neoplasm of sigmoid colon; R19.5 Other fecal abnormalities; K57.30 Diverticulosis of large intestine without perforation or abscess without bleeding; K64.8 Other hemorrhoids
CPT/HCPCS: 00811; 45385; 88305; 99100; J2704; J7120